=== PATIENT | male | born 1960 | race Caucasian/White ===

== ENCOUNTER 2017-11-25 11:10 | Emergency (ER) | payer BC ==
[2017-11-25 11:33] VITALS: BP 139/93
--- NOTE | 2017-11-25 11:56 | ED ---
Upper Extremity Pain - HPI Summary HPI Summary: 57 yr old with complaint of fever, chills, medial left arm pain since , and he feels a mass in left arm medial elbow area. No change in ROM. He feels ill when the fever comes. He denies URI, cough, abdominal pain, other complaints. - History of Current Complaint Chief Complaint: UCSkin Stated Complaint: LEFT ARM BITE,FEVER Time Seen by Provider: 11/25/17 11:35 - Allergies/Home Medications Allergies/Adverse Reactions: Allergies Allergy/AdvReac Type Severity Reaction Status Date / Time No Known Allergies Allergy Verified 08/01/15 18:11 PMH/Surg Hx/FS Hx/Imm Hx Cardiovascular History: Reports: Hx Hypertension - Surgical History Surgery Procedure, Year, and Place: R hip x 3: , , . R shoulder x 2: ' 00, 07, 17. LEFT HIP REPLACEMENT. L shoulder '09. Appy ~ '94 Infectious Disease History: No Infectious Disease History: Reports: Hx Shingles - 2016, Traveled Outside the in Last 30 Days - [facility] - Family History Known Family History: Positive: None - Social History Occupation: Retired Alcohol Use: Weekly Alcohol Amount: few times a week Substance Use Type: Reports: None Smoking Status (MU): Never Smoked Tobacco Type: Smokeless Tobacco Amount Used/How Often: DAILY Review of Systems Positive: Fever, Chills, Fatigue Positive: Other - swelling and pain in medial arm with redness. Positive: Other - redness All Other Systems Reviewed And Are Negative: Yes Physical Exam Triage Information Reviewed: Yes Vital Signs On Initial Exam: Initial Vitals Temp Pulse Resp BP Pulse Ox 99.9 F 83 18 139/93 98 11/25/17 11:24 11/25/17 11:24 11/25/17 11:24 11/25/17 11:24 11/25/17 11:24 Vital Signs Reviewed: Yes Appearance: Positive: Well-Appearing, No Pain Distress Skin: Positive: Warm, Skin Color Reflects Adequate Perfusion, Other - redness medial left arm near elbow. Eyes: Positive: EOMI Neck: Positive: Nontender Respiratory/Lung Sounds: Positive: Clear to Auscultation, Breath Sounds Present Cardiovascular: Positive: RRR. Negative: Murmur Abdomen Description: Positive: Nontender. Negative: Distended Musculoskeletal: Positive: Other - left arm with mass about 2 inch in diameter medial lower left arm just above elbow joint, tender, warm, no fluctuance. Neurological: Positive: Sensory/Motor Intact, Alert, Oriented to Person Place, Time, CN Intact II-III Psychiatric: Positive: Normal - [place] Coma Scale Best Eye Response: 4 - Spontaneous Best Motor Response: 6 - Obeys Commands Best Verbal Response: 5 - Oriented Coma Scale Total: 15 Diagnostics - Vital Signs Vital Signs Temp Pulse Resp BP Pulse Ox 11/25/17 11:24 99.9 F 83 18 139/93 98 - Laboratory Lab Statement: Any lab studies that have been ordered have been reviewed, and results considered in the medical decision making process. Course/Dx - Course Course Of Treatment: 57 yr old male with mass medial left arm with fever, chills , fatigue, and redness to skin overlying. TO ER at [place] for further evaluation. I have called [place] [facility] and discussed the case with Lucy Gee NP and they will futher work the patient up today. - Diagnoses Provider Diagnoses: Mass of soft tissue of left upper extremity, Cellulitis, Hypertension Discharge - Sign-Out/Discharge Documenting (check all that apply): Discharge/Admit/Transfer - Discharge Plan Condition: Good Disposition: TRANS HIGHER LVL OF CARE FAC Patient Education Materials: Fever in Adults (ED), Soft Tissue Mass (ED), Hypertension (ED) Referrals: Vince Merrill NP [Primary Care Provider] - Additional Instructions: [facility]: Emergency Room Emergency room in [place], [place] DirectionsWebsite Address: [address] [place] [address] You need to go to the ER for further evaluation right after you leave here. - Billing Disposition and Condition Condition: GOOD Disposition: Trans Higher Lvl of Care Fac
== END 2017-11-25 12:04 | disposition short-term general hospital (02) ==
LOC: UCCORT 11:10
DX: R22.32 Localized swelling, mass and lump, left upper limb (principal); L03.114 Cellulitis of left upper limb; I10 Essential (primary) hypertension; R50.9 Fever, unspecified
CPT/HCPCS: 99212; G0463

== ENCOUNTER 2019-08-15 11:50 | Emergency (ER) | payer BC ==
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
[2019-08-15 13:45] VITALS: BP 132/75
== END 2019-08-15 14:31 | disposition home or self-care (01) ==
LOC: UCCORT 11:50
DX: S49.92XA Unspecified injury of left shoulder and upper arm, initial encounter (principal); W00.0XXA Fall on same level due to ice and snow, initial encounter; Y92.9 Unspecified place or not applicable; Z79.82 Long term (current) use of aspirin
CPT/HCPCS: 99211; G0463